=== PATIENT | female | born 1975 | race Caucasian/White ===

== ENCOUNTER → 2022-01-21 | Outpatient (CLI) | payer SELFPAY ==
[~2022-01-21] VITALS: Ht 180.3 cm; Wt 112.4 kg
[~2022-01-21] MED LIST: ASPIRIN 32325 MG/TAB PO; TOPROL XL 25MG25 MG PO
[2022-01-21 11:03] VITALS: BP 134/87; PULSE 69; TEMP 98.1
== END ==
LOC: COL.CARD 10:36
DX: R07.89 Other chest pain (principal); R06.02 Shortness of breath
CPT/HCPCS: A9500

== ENCOUNTER 2022-02-17 10:14 | Outpatient (CLI) | payer SELFPAY ==
[~2022-02-17] VITALS: Ht 180.3 cm; Wt 113.0 kg
[2022-02-17 10:46] LABS: BASO # 0.1 K/mm3 (0.0-0.2); BASO % 1.2 % (0.0-2.0); EOS # 0.1 K/mm3 (0.0-0.7); GRAN # 3.7 K/mm3 (1.4-6.5); GRAN % 53.8 % (42.2-75.2); HEMATOCRIT 42.6 % (37.0-47.0); HEMOGLOBIN 14.9 g/dl (12.5-16.0); LYMPH # 2.2 K/mm3 (1.2-3.4); LYMPH % 31.6 % (20.0-51.0); MEAN CELL VOLUME 90 fl (80.0-100.0); MEAN CORPUSCULAR HEMOGLOBIN 31 pg (27-31); MEAN CORPUSCULAR HGB CONC 35 g/dl (33.0-37.0); MONO # 0.8 K/mm3 (0.1-0.6); MONO % 11.1 % (1.7-9.3); PLATELET COUNT 234 K/mm3 (130-400); RED BLOOD COUNT 4.76 M/mm3 (4.10-5.30); REDCELL DISTRIBUTION WIDTH-CV 12.2 % (11.5-14.5)
[2022-02-17 10:53] VITALS: BP 128/87; PULSE 61; TEMP 98.2
[2022-02-17 11:02] LABS: CALCIUM 9.2 mg/dL (8.4-10.2); CREATININE, serum 0.79 mg/dL (0.57-1.11); POTASSIUM 4.6 mmol/L (3.5-4.5)
[2022-02-17 11:20] LABS: PROTHROMBIN TIME 11.3 SECONDS (9.7-12.8)
[2022-02-17 12:05] VITALS: BP 116/74; PULSE 61
[2022-02-17 12:15] VITALS: BP 123/79; PULSE 63
[2022-02-17 12:30] VITALS: BP 115/80; PULSE 61
[2022-02-17 12:45] VITALS: BP 115/79; PULSE 59
[2022-02-17 13:00] VITALS: BP 107/78; PULSE 56
[2022-02-17] MEDS ORDERED: ASPIRIN E.C. 8181 MG PO (13:46)
== END 2022-02-17 14:30 | disposition home or self-care (01) ==
LOC: COL.RAD 10:14
PROVIDERS: Internal Medicine Interventional Cardiology
DX: I36.1 Nonrheumatic tricuspid (valve) insufficiency (principal); I51.7 Cardiomegaly
CPT/HCPCS: J2704; J7120